=== PATIENT | male | born 1960 | race Caucasian/White ===

== ENCOUNTER → 2016-07-10 | Day surgery (SDC) | payer MEDICAID ==
[~2016-07-10] VITALS: Ht 177.8 cm; Wt 142.1 kg
[~2016-07-10] MED LIST: ACTO45TA8 PO; ACYC800T PO; ALLO100T PO; AMBI10TA PO; ASPI1TAB69 PO; ASPI325T PO; BACT800T5 PO; BUPIVACAINE HCL PF 0.5% 30 ML VIAL ONE; CELE20TA PO; DEXAMETHASONE SOD PHOS 4 MG/ML VIAL ONE; DEXT 5%-NACL 0.45% 1000 ML INJ 1,000 ML IV SCH; DILT120C9 PO; DO NOT ADM ANY ANTICOAGULANT DRUGS XX PRN; DOK100TA PO; DOXY100C PO; EMTR1TAB2 PO; ENAL10TA PO; FAMOTIDINE 20 MG/2 ML VIAL ONE; FOLI5CAP PO; FURO1TAB62 PO; GABA600T PO; HYDR-3535 PO; INDO25CA PO; INSULIN HUMAN REGULAR 1,000 UNITS/10 ML VIAL SQ PRN; LACTATED RINGER'S 1000 ML INJ 1,000 ML IV ONE; LACTATED RINGER'S 1000 ML IV SCH; METOCLOPRAMIDE HCL 10 MG/2 ML VIAL ONE; METOPROLOL TARTRATE 25 MG TAB PO PRN; MIDAZOLAM HCL 5 MG/5 ML VIAL ONE; MORPHINE SULFATE 4 MG/ML INJ ONE; NEOSTIGMINE 3 MG/3 ML SYR IV ONE; ONDANSETRON HCL 4 MG/2 ML VIAL IV PUSH ONE; POTA-163 PO; POVIDONE IODINE 10% OINT 1 PACKET TOP ONE; PRIL20CA9 PO; PROPOFOL 200 MG/20 ML AMP IV ONE; SIMV40TA PO; SODIUM CHLORID 0.9% 500 ML IV SCH; SODIUM CHLORIDE 0.9% FLUSH 5 ML FLUSH IVF PRN; SODIUM CHLORIDE 0.9% FLUSH 5 ML FLUSH IVF SCH; TERA10CA3 PO; TEST-55 SQ; VIAG100T PO; ceFAZolin 2 GM PREMIX 50 ML IV SCH; fentaNYL CITRATE 250 MCG/5 ML AMP ONE
[2016-07-10 09:06] VITALS: BP 142/72; PULSE 91; RESP 18; TEMP 97.9; O2SAT 98
[2016-07-10 09:23] LABS: AUTOMATED NEUTROPHIL # 3.3 TH/MM3 (1.8-7.7); BASOPHIL % 0.5 % (0.0-2.0); EOSINOPHIL # 0.1 TH/MM3 (0-0.4); EOSINOPHIL % 1.6 % (0.0-4.0); HEMATOCRIT 48.7 % (39.0-51.0); HEMO FLAGS DIFF FINAL; LYMPH % 19.8 % (9.0-44.0); MEAN CELL VOLUME 92.1 FL (80.0-100.0); MEAN CORPUSCULAR HEMOGLOBIN 30.6 PG (27.0-34.0); MEAN CORPUSCULAR HGB CONC 33.2 % (32.0-36.0); NEUT % 67.1 % (16.0-70.0); PLATELET COUNT 207 TH/MM3 (150-450); RED BLOOD COUNT 5.29 MIL/MM3 (4.50-5.90); RED CELL DISTRIBUTION WIDTH 13.9 % (11.6-17.2); WHITE BLOOD COUNT 4.9 TH/MM3 (4.0-11.0)
--- NOTE | 2016-07-10 11:03 | HP.UPD ---
H&P Update Date: Jul 10, 2016 Note The Pre-Admit History and Physical Examination regarding the above named patient was reviewed (including, but not limited to, vital signs, medications, allergies, co-morbid conditions), and upon re-examination it is noted that: Indicated with "X" x - the patient's condition has not significantly changed since the last examination. [] - the patient's condition has changed since the last examination. Changes: Rajani Kang MD Jul 10, 2016 11:03
--- NOTE | 2016-07-10 13:21 | HHI.PR ---
Immediate Post Op Note Procedure Date: Jul 10, 2016 Pre Op Diagnosis: (1) Retained orthopedic hardware (2) Scar of finger Post Op Diagnosis: (1) Retained orthopedic hardware (2) Scar of finger Surgeon: Rajani Kang [employer] Service Attendant(s): None Procedure: 1. Removal of hardware from right fifth proximal phalanx. 2. Tenolysis extensor tendons right fifth finger. Specimen(s) removed: Two plates and 7 screws. Anesthesia: General Drains: None Tourniquet time (min at mmHg) 50 minutes at 220 mmHg Patient to: PACU Patient Condition: Good Date/Time of Procedure: SEE SURGICAL CARE RECORD Rajani Kang MD Jul 10, 2016 13:21
[2016-07-10 14:35] VITALS: BP 119/69; PULSE 72; RESP 18; TEMP 97; O2SAT 96
--- NOTE | 2016-07-11 09:21 | MP ---
cc: EZEQUIEL LOJA M.D. DATE OF OPERATION 07/10/2016 PREOPERATIVE DIAGNOSES 1. Retained orthopedic hardware right fifth proximal phalanx. 2. Scar of tendons right fifth proximal phalanx. POSTOPERATIVE DIAGNOSES 1. Retained orthopedic hardware right fifth proximal phalanx. 2. Scar of tendons right fifth proximal phalanx. PROCEDURE 1. Removal of hardware from right fifth proximal phalanx. 2. Tenolysis extensor tendons right fifth finger. ANESTHESIA General. SURGEON Ezequiel Loja MD INDICATIONS A 55-year-old male with history of severe fracture of the proximal phalanx of the right fifth finger. This did go on to heal, but there was some irritation and pain from the hardware. In addition, the patient has significant amount of tendon adhesions. FINDINGS At the completion of the procedure all of the metal had been removed and the finger was able to put through a full passive range of motion. There did appear to be pull-through from the proximal extensor tendon proximal to the MP joint. Tourniquet time was 15 minutes at 220 mmHg. PROCEDURE The patient was seen preoperatively where the site and side were identified and marked. The patient was then taken to the operating room and placed in a supine position. His identity was checked against the arm band and the consent form, site and side confirmed, time-out called prior to beginning the procedure. The right upper extremity was prepped with Hibiclens and draped in a usual sterile fashion. The area to be incised was outlined with a marking pen as a zigzag incision in the area of the previous incision. The arm was exsanguinated and tourniquet inflated to 250 mmHg. Under loupe magnification, a #15 blade was used to make the incision as noted above, down through skin, down to the subcutaneous tissue. Flaps were elevated and raised exposing extensor tendons which were then from the scar tissue to the skin. The extensor tendon was freed on both ulnar and radial sides. Attention was first turned to the ulnar side where the tenolysis was performed under loupe magnification by the extensor tendon from the deep bony structures. This was done proximally and distally along the entire bone from joint to joint. The hardware was then located and the screws were removed and the plate was removed. Attention was then turned to the radial side of the finger where again the extensor apparatus in the area of the lateral bands were from underlying bone as well as overlying skin This exposed the proximal phalanx as well as the hardware. The tendon was from the hardware as well as underlying bone. Tenolysis was performed from joint to joint. The hardware was then removed by removing the screws sequentially. An x-ray was done with the mini C-arm which confirmed that all the hardware had been removed. Tenolysis was then checked. The finger was put through a full range of motion. The PIP joint volar plate was released and the collateral ligaments were also released in order to allow for extension and flexion. Proximal to the MP joint the extensor tendon was freed from the surrounding structures. There was no significant scar noted here. It was pulled and it did give good extension. The wound was then copiously irrigated with saline and closed with interrupted and running 4-0 nylon suture. Bupivacaine 0.5% plain was then used to do a metacarpal head block. Once the wound was closed and the block was in, the tourniquet was released after 50 minutes of tourniquet time. Pressure was applied. After several minutes there was no evidence of any oozing and a dressing was applied using povidone-iodine ointment, Adaptic, Telfa, 4x4s and hand wrap. The patient was then taken from the operating room to the recovery room in satisfactory condition having tolerated the procedure well. Postoperative instructions include keeping the arm elevated, keeping the area clean and dry and returning in several days for followup. MD DORITA Reid/MARY /1:24 PM /9:13 AM NGUYEN
== END | disposition home or self-care (01) ==
LOC: HSDC 07:37
PROVIDERS: ATTEND Specialist
DX: T84.84XD Pain due to internal orthopedic prosthetic devices, implants and grafts, subsequent encounter (principal); L90.5 Scar conditions and fibrosis of skin; M79.644 Pain in right finger(s); E11.9 Type 2 diabetes mellitus without complications; I25.10 Atherosclerotic heart disease of native coronary artery without angina pectoris; Z79.82 Long term (current) use of aspirin
CPT/HCPCS: 01810; 20680; 26445; 76000; 85025; J0690; J1100; J2250; J2270; J2405; J2710; J2765; J3010; J7120